=== PATIENT | female | born 1985 | race Two or more races ===

== ENCOUNTER → 2023-11-04 10:38 | Outpatient (REF) | payer OTHER, SELFPAY ==
[2023-11-07 04:25] LABS: Quantiferon Mitogen minus NIL 9.91 IU/mL; Quantiferon NIL 0.09 IU/mL; Quantiferon Plus TB1 minus NIL 0.02 IU/mL (<=0.34); Quantiferon Plus TB2 minus NIL 0.05 IU/mL (<=0.34); Quantiferon TB Gold Plus Negative (Negative)
== END ==
LOC: RAD 10:38
PROVIDERS: ATTENDING PHYSICIAN Family Medicine
DX: R76.11 Nonspecific reaction to tuberculin skin test without active tuberculosis (principal)
CPT/HCPCS: 36415; 71046; 86480